=== PATIENT | female | born 1995 | race Caucasian/White ===

== ENCOUNTER 2016-11-22 11:42 | Observation (INO) | payer OTHER ==
[2016-11-23 10:33] VITALS: BP 95/53
== END 2016-11-23 11:40 | disposition home or self-care (01) ==
LOC: 4S 11-23 10:14
PROVIDERS: ADMIT Obstetrics & Gynecology; ATTEND Obstetrics & Gynecology
DX: O48.0 Post-term pregnancy (principal); Z3A.40 40 weeks gestation of pregnancy
CPT/HCPCS: 59025; G0378

== ENCOUNTER 2016-11-25 11:18 | Inpatient (IN) | payer OTHER ==
[~2016-11-25] VITALS: Ht 160 cm; Wt 75.3 kg
[2016-11-25] MEDS ORDERED: RINGERS SOLUTION,LACTATED 1,000 ML IV PRN (13:39)
[2016-11-25] MEDS ORDERED: OXYTOCIN 30 UNITS/LACT RINGERS 500 ML IV PRN (13:39)
[2016-11-25] MEDS ORDERED: LIDOCAINE HCL/PF 1% 30 ML VIAL INJ PRN (13:45)
[2016-11-25] MEDS ORDERED: METHYLERGONOVINE MALEATE 0.2 MG/ML VIAL IM PRN (13:45)
[2016-11-25] MEDS ORDERED: FentaNYL CITRATE-PF 100 MCG/2 ML VIAL IVP PRN (13:45)
[2016-11-25] MEDS ORDERED: METOCLOPRAMIDE HCL 5 MG/ML 2 ML VIAL IVP PRN (13:45)
[2016-11-25] MEDS ORDERED: CITRIC ACID/SODIUM CITRATE 30 ML SOLUTION UDCUP PO PRN (13:45)
[2016-11-25] MEDS: RINGERS SOLUTION,LACTATED 1,000 ML IV SCH ×3 (14:09→21:37)
[2016-11-25 14:17] LABS: BASOPHILS # (AUTO) 0.03 K/uL (0.00-0.20); BASOPHILS % (AUTO) 0.2 % (0.0-2.0); EOSINOPHILS # (AUTO) 0.05 K/uL (0.00-0.70); EOSINOPHILS % (AUTO) 0.35 % (1.0-6.0); HEMATOCRIT 36.4 % (36-46); HEMOGLOBIN 12.3 g/dL (12.0-16.0); LYMPHOCYTES # (AUTO) 1.7 K/uL (1.0-4.8); LYMPHOCYTES % (AUTO) 13.1 % (22.0-44.0); MEAN CORPUSCULAR HEMOGLOBIN 31.4 pg (26.0-34.0); MEAN CORPUSCULAR HGB CONC 33.9 G/dL (31.0-37.0); MEAN CORPUSCULAR VOLUME 93 fL (80-100); MONOCYTES # (AUTO) 0.8 K/uL (0.1-1.0); MONOCYTES % (AUTO) 6.3 % (2.0-9.0); NEUTROPHILS # (AUTO) 10.5 K/uL (1.8-7.7); RED BLOOD CELL COUNT(AUTO) 3.93 MIL/uL (4.00-5.20); RED CELL DISTRIBUTION WIDTH 13.1 % (11.5-14.5); WHITE BLOOD COUNT (AUTO) 13.1 K/uL (4.5-11.0)
[2016-11-25] MEDS ORDERED: FentaNYL/BUPIV 0.125%/NS/PF 200 ML ED ONE (14:56)
[2016-11-25] MEDS ORDERED: FentaNYL/BUPIV 0.125%/NS/PF 200 ML ED PRN (15:27)
[2016-11-25] MEDS ORDERED: ONDANSETRON HCL 4 MG/2 ML VIAL IVP PRN (15:30)
[2016-11-25] MEDS ORDERED: PROMETHAZINE HCL 12.5 MG in SODIUM CHLORIDE 0.9% 50 ML IV PRN (15:30)
[2016-11-25] MEDS ORDERED: DiphenhydrAMINE HCL 50 MG/ML VIAL IVP PRN (15:30)
[2016-11-25] MEDS ORDERED: NALBUPHINE HCL 10 MG/ML VIAL IVP PRN (15:30)
[2016-11-25] MEDS: OXYGEN THERAPY IH SCH ×2 (21:37→21:38)
[2016-11-25] MEDS ORDERED: LIDOCAINE HCL 2%/EPI 1:200,000/PF 10 ML VIAL ONE (23:25)
[2016-11-26] MEDS ORDERED: RINGERS SOLUTION,LACTATED 1,000 ML IV ONE (02:38)
[2016-11-26] MEDS ORDERED: BENZOCAINE 20%/MENTHOL 56 GM SPRAY CANISTER TP PRN (02:45)
[2016-11-26] MEDS ORDERED: LANOLIN 7 GM OINTMENT TP PRN (02:45)
[2016-11-26] MEDS ORDERED: OxyCODONE HCL/ACETAMINOPHEN 5-325 MG TABLET PO PRN ×2 (02:45)
[2016-11-26] MEDS ORDERED: MEASLES/MUMPS/RUBELLA VACCINE, LIVE 0.5 ML/VIAL SQ ONE (02:45)
[2016-11-26] MEDS: IBUPROFEN 600 MG TABLET PO PRN ×2 (09:08→19:43)
[2016-11-26] MEDS: MAGNESIUM HYDROXIDE SUSPENSION 30 ML UDCUP PO SCH ×2 (09:08→21:52)
[2016-11-26] MEDS: GLYCERIN/WITCH HAZEL LEAF 40 PADS JAR TP PRN (19:43)
[2016-11-27] MEDS: IBUPROFEN 600 MG TABLET PO PRN (06:01)
[2016-11-27] MEDS: GLYCERIN/WITCH HAZEL LEAF 40 PADS JAR TP PRN (06:01)
[2016-11-27] MEDS ORDERED: IBUP-2070 PO (08:58)
[2016-11-27] MEDS ORDERED: DSS100 PO (08:59)
== END 2016-11-27 11:10 | disposition home or self-care (01) | DRG 775 ==
LOC: OBSVTOIN 11:18 → 4S 11:18
PROVIDERS: ADMIT Obstetrics & Gynecology; ATTEND Obstetrics & Gynecology
PROC: 10E0XZZ Delivery of Products of Conception, External Approach (ICD-10-PCS; principal; 2016-11-26)
PROC: 3E0S3CZ (ICD-10-PCS; 2016-11-26)
PROC: 00HU33Z Insertion of Infusion Device into Spinal Canal, Percutaneous Approach (ICD-10-PCS; 2016-11-26)
PROC: 0W8NXZZ Division of Female Perineum, External Approach (ICD-10-PCS; 2016-11-26)
PROC: 10907ZC Drainage of Amniotic Fluid, Therapeutic from Products of Conception, Via Natural or Artificial Opening (ICD-10-PCS; 2016-11-26)
DX: O80 Encounter for full-term uncomplicated delivery (principal); Z37.0 Single live birth; Z3A.40 40 weeks gestation of pregnancy
CPT/HCPCS: 86850; 86900; 86901; J2590; J3010; J3490; J7120

== ENCOUNTER 2018-08-24 19:42 | Inpatient (IN) | payer OTHER ==
[~2018-08-24] VITALS: Ht 157.5 cm; Wt 80.5 kg
[~2018-08-24 19:42] MED LIST: DSS100 PO; IBUP-2070 PO
[2018-08-24] MEDS ORDERED: RINGERS SOLUTION,LACTATED 1,000 ML IV PRN (20:09)
[2018-08-24] MEDS ORDERED: RINGERS SOLUTION,LACTATED 1,000 ML IV SCH (20:09)
[2018-08-24] MEDS ORDERED: OXYTOCIN 30 UNITS/LACT RINGERS 500 ML IV ONE (20:09)
[2018-08-24 20:15] VITALS: BP 114/57
[2018-08-24] MEDS ORDERED: CITRIC ACID/SODIUM CITRATE 30 ML SOLUTION UDCUP PO PRN (20:15)
[2018-08-24] MEDS ORDERED: FentaNYL CITRATE-PF 100 MCG/2 ML VIAL IVP PRN (20:15)
[2018-08-24] MEDS ORDERED: OXYGEN THERAPY IH SCH (20:15)
[2018-08-24] MEDS ORDERED: METOCLOPRAMIDE HCL 5 MG/ML 2 ML VIAL IVP PRN (20:15)
[2018-08-24 20:34] LABS: BASOPHILS % (AUTO) 0.4 % (0.0-2.0); HEMATOCRIT 36.2 % (36-46); HEMOGLOBIN 12.3 g/dL (12.0-16.0); LYMPHOCYTES # (AUTO) 2.5 K/uL (1.0-4.8); LYMPHOCYTES % (AUTO) 23.1 % (22.0-44.0); MEAN CORPUSCULAR HEMOGLOBIN 30.6 pg (26.0-34.0); MEAN CORPUSCULAR HGB CONC 33.9 G/dL (31.0-37.0); MEAN CORPUSCULAR VOLUME 90 fL (80-100); MONOCYTES # (AUTO) 0.7 K/uL (0.1-1.0); MONOCYTES % (AUTO) 6.4 % (2.0-9.0); NEUTROPHILS # (AUTO) 7.5 K/uL (1.8-7.7); NEUTROPHILS % (AUTO) 69.1 % (40.0-70.0); PLATELET COUNT (AUTO)-OB 179 K/uL (150-450); RED BLOOD CELL COUNT(AUTO) 4.01 MIL/uL (4.00-5.20); RED CELL DISTRIBUTION WIDTH 13.8 % (11.5-14.5)
[2018-08-24] MEDS ORDERED: PREN1TAB80 PO (20:45)
[2018-08-24] MEDS ORDERED: MISOPROSTOL 25 MCG TABLET PO ONE (21:15)
[2018-08-25] MEDS ORDERED: MISOPROSTOL 50 MCG TABLET PO SCH (02:15)
[2018-08-25] MEDS ORDERED: ROPIVACAINE HCL/PF 0.2% 100 ML ED ONE (03:08)
[2018-08-25] MEDS ORDERED: OXYTOCIN 30 UNITS/LACT RINGERS 500 ML IV PRN (06:06)
[2018-08-25] MEDS ORDERED: DiphenhydrAMINE HCL 50 MG/ML VIAL IVP PRN (08:00)
[2018-08-25] MEDS ORDERED: ONDANSETRON HCL 4 MG/2 ML VIAL IVP PRN (08:00)
[2018-08-25] MEDS ORDERED: ROPIVACAINE HCL/PF 0.2% 100 ML ED PRN (08:00)
[2018-08-25] MEDS ORDERED: NALBUPHINE HCL 10 MG/ML VIAL IVP PRN (08:00)
[2018-08-25] MEDS ORDERED: RINGERS SOLUTION,LACTATED 1,000 ML IV ONE (13:48)
[2018-08-25] MEDS ORDERED: OxyCODONE HCL/ACETAMINOPHEN 5-325 MG TABLET PO PRN ×2 (14:00)
[2018-08-25] MEDS ORDERED: BENZOCAINE 20%/MENTHOL 56 GM SPRAY CANISTER TP PRN (14:00)
[2018-08-25] MEDS ORDERED: GLYCERIN/WITCH HAZEL LEAF 40 PADS JAR TP PRN (14:00)
[2018-08-25] MEDS ORDERED: LANOLIN 7 GM OINTMENT TP PRN (14:00)
[2018-08-25] MEDS: IBUPROFEN 600 MG TABLET PO PRN (16:35)
[2018-08-25] MEDS ORDERED: MAGNESIUM HYDROXIDE SUSPENSION 30 ML UDCUP PO SCH (21:00)
[2018-08-26] MEDS: IBUPROFEN 600 MG TABLET PO PRN ×2 (00:22→09:59)
[2018-08-26 05:51] LABS: BASOPHILS % (AUTO) 0.3 % (0.0-2.0); HEMATOCRIT 31.9 % (36-46); HEMOGLOBIN 10.8 g/dL (12.0-16.0); LYMPHOCYTES # (AUTO) 2.4 K/uL (1.0-4.8); MEAN CORPUSCULAR HEMOGLOBIN 30.5 pg (26.0-34.0); MEAN CORPUSCULAR HGB CONC 33.9 G/dL (31.0-37.0); MEAN CORPUSCULAR VOLUME 90 fL (80-100); MONOCYTES # (AUTO) 0.8 K/uL (0.1-1.0); MONOCYTES % (AUTO) 7.5 % (2.0-9.0); NEUTROPHILS # (AUTO) 7.6 K/uL (1.8-7.7); NEUTROPHILS % (AUTO) 69.2 % (40.0-70.0); PLATELET COUNT (AUTO)-OB 131 K/uL (150-450); RED BLOOD CELL COUNT(AUTO) 3.54 MIL/uL (4.00-5.20); RED CELL DISTRIBUTION WIDTH 14.2 % (11.5-14.5)
== END 2018-08-26 15:45 | disposition home or self-care (01) | DRG 807 ==
LOC: 4S 19:42 → OBSVTOIN 19:42
PROVIDERS: ADMIT Obstetrics & Gynecology; ATTEND Obstetrics & Gynecology
PROC: 10E0XZZ Delivery of Products of Conception, External Approach (ICD-10-PCS; principal; 2018-08-25)
PROC: 0KQM0ZZ Repair Perineum Muscle, Open Approach (ICD-10-PCS; 2018-08-25)
PROC: 3E0R3BZ Introduction of Anesthetic Agent into Spinal Canal, Percutaneous Approach (ICD-10-PCS; 2018-08-25)
PROC: 00HU33Z Insertion of Infusion Device into Spinal Canal, Percutaneous Approach (ICD-10-PCS; 2018-08-25)
PROC: 10907ZC Drainage of Amniotic Fluid, Therapeutic from Products of Conception, Via Natural or Artificial Opening (ICD-10-PCS; 2018-08-25)
DX: O77.0 Labor and delivery complicated by meconium in amniotic fluid (principal); Z37.0 Single live birth; O70.1 Second degree perineal laceration during delivery; Z3A.40 40 weeks gestation of pregnancy
CPT/HCPCS: 86850; 86900; 86901; J2590; J2795; J7120